=== PATIENT | male | born 1970 | race Caucasian/White ===

== ENCOUNTER → 2017-01-09 | Outpatient (CLI) | payer BC ==
[2017-01-09 11:27] LABS: Basophils % (A) 1 %; CH 30.1; CHCM 34.8; Eosinophils # (A) 0.1 k/uL (0-0.7); Eosinophils % (A) 3 %; HCT 38.4 % (39.0-53.0); HDW 2.71; HGB 13.4 gm/dL (13.0-17.5); Luc # (Auto) 0.07; Luc % (Auto) 2; Lymphocytes # (A) 1.4 k/uL (1.0-4.8); Lymphocytes % (A) 31 %; MCH 30.2 pg (25.0-35.0); MCHC 34.8 g/dL (31.0-37.0); MCV 86.9 fL (80.0-100.0); Mean Platelet Volume 7.4; Monocytes # (A) 0.2 k/uL (0-1.0); Monocytes % (A) 5 %; Neutrophils # (A) 2.7 k/uL (1.3-7.7); Neutrophils % (A) 59 %; RBC 4.42 m/uL (4.30-5.90); RDW 13.7 % (11.5-15.5); WBC 4.6 k/uL (3.8-10.6); WBC (Perox) 4.98
[2017-01-09 11:32] LABS: Appearance,Urine Clear (Clear); Bilirubin,Urine Negative (Negative); Glucose,Urine (UA) Negative (Negative); Ketones,Urine Negative (Negative); Leukocyte Esterase,Urine Negative (Negative); Nitrite,Urine Negative (Negative); Protein,Urine Trace (Negative); Specific Gravity,Urine 1.015 (1.001-1.035); UA Billing (MACRO vs. MICRO) CHEM; Urobilinogen,Urine <2.0 mg/dL (<2.0)
[2017-01-09 11:39] LABS: Anion Gap 8 mmol/L; Blood Urea Nitrogen 28 mg/dL (9-20); Calcium 10.1 mg/dL (8.4-10.2); Carbon Dioxide 27 mmol/L (22-30); Chloride 106 mmol/L (98-107); Glucose 96 mg/dL (74-99); Non-African American GFR(MDRD) >60 (>60 ml/min/1.73 sqM); Phosphorus 3.5 mg/dL (2.5-4.5); Potassium 4.6 mmol/L (3.5-5.1); Sodium 141 mmol/L (137-145); Uric Acid 8.1 mg/dL (3.5-8.5)
[2017-01-09 16:44] LABS: Iron Saturation 18.36 (15.00-50.00)
== END | disposition home or self-care (01) ==
LOC: LABWHC1 10:55
PROVIDERS: ATTEND Internal Medicine Nephrology
DX: N39.0 Urinary tract infection, site not specified (principal); M10.9 Gout, unspecified; D50.9 Iron deficiency anemia, unspecified; E55.9 Vitamin D deficiency, unspecified; N25.81 Secondary hyperparathyroidism of renal origin; N18.2 Chronic kidney disease, stage 2 (mild); D63.1 Anemia in chronic kidney disease
CPT/HCPCS: 36415; 80048; 81003; 82306; 82728; 83540; 83550; 83735; 83970; 84100; 84550; 85025

== ENCOUNTER → 2019-01-17 | Outpatient (CLI) | payer BC ==
[2019-01-18 00:10] LABS: Gliadin AB IgA, Deaminated NEGATIVE (NEGATIVE); Gliadin AB IgG, Deaminated NEGATIVE (NEGATIVE)
== END | disposition home or self-care (01) ==
LOC: LABWHC1 16:31
PROVIDERS: ATTEND Physician Assistant
DX: Z13.818 Encounter for screening for other digestive system disorders (principal); Z83.79 Family history of other diseases of the digestive system
CPT/HCPCS: 36415; 83516

== ENCOUNTER → 2019-11-26 | Outpatient (CLI) | payer BC ==
[2019-11-26 08:58] LABS: Basophils # (A) 0.1 k/uL (0-0.2); Basophils % (A) 1 %; Eosinophils # (A) 0.1 k/uL (0-0.7); Eosinophils % (A) 3 %; HCT 41.2 % (39.0-53.0); HGB 14.1 gm/dL (13.0-17.5); Lymphocytes # (A) 1.4 k/uL (1.0-4.8); Lymphocytes % (A) 31 %; MCH 30.8 pg (25.0-35.0); MCHC 34.4 g/dL (31.0-37.0); MCV 89.5 fL (80.0-100.0); Mean Platelet Volume 6.7; Monocytes # (A) 0.2 k/uL (0-1.0); Monocytes % (A) 5 %; Neutrophils # (A) 2.5 k/uL (1.3-7.7); Neutrophils % (A) 58 %; Platelet Count 204 k/uL (150-450); RDW 12.4 % (11.5-15.5); WBC 4.4 k/uL (3.8-10.6)
[2019-11-26 09:21] LABS: Appearance,Urine Clear (Clear); Bilirubin,Urine Negative (Negative); Blood,Urine Negative (Negative); Color,Urine Light Yellow; Glucose,Urine (UA) Negative (Negative); Ketones,Urine Negative (Negative); Leukocyte Esterase,Urine Negative (Negative); Nitrite,Urine Negative (Negative); PH, Urine 6.5 (5.0-8.0); Protein,Urine Negative (Negative); Specific Gravity,Urine 1.014 (1.001-1.035); Urobilinogen,Urine <2.0 mg/dL (<2.0)
[2019-11-26 10:05] LABS: Protein/Creatinine Ratio,Urine 0.113
[2019-11-26 18:00] LABS: % Iron Saturation 20.79 (15.00-50.00); African American GFR (CKD) 92.2 (60.0-200.0); Anion Gap 9.2 mmol/L (4.00-12.00); BUN/Creat Ratio 23.64 Ratio (12.00-20.00); Calcium 9.8 mg/dL (8.7-10.3); Carbon Dioxide 27.8 mmol/L (21.6-31.8); Non-African American GFR(CKD) 79.5 (60.0-200.0); Potassium 4.5 mmol/L (3.5-5.5); Uric Acid 8.5 mg/dL (3.7-8.7)
[2019-11-26 18:01] LABS: Albumin 4.5 g/dL (3.80-4.90); Phosphorus 3.3 mg/dL (2.4-5.1)
[2019-11-26 18:09] LABS: Ferritin 294.5 ng/mL (22.0-322.0)
== END | disposition home or self-care (01) ==
LOC: LABWHC1 07:43
PROVIDERS: ATTEND Internal Medicine Nephrology
DX: N18.2 Chronic kidney disease, stage 2 (mild) (principal)
CPT/HCPCS: 36415; 80048; 81003; 82040; 82306; 82570; 82728; 83540; 83550; 83735; 83970; 84100; 84156; 84550; 85025

== ENCOUNTER 2020-10-27 10:25 | Day surgery (SDC) | payer BC ==
[2020-10-22 15:35] VITALS: BMI 32.3
[~2020-10-27 10:25] MED LIST: LACTATED RINGERS 1,000 ML IV SCH
[2020-10-27 10:45] VITALS: TEMP 98
[2020-10-27] MEDS ORDERED: LACTATED RINGERS 1,000 ML IV ONE (10:53)
[2020-10-27] MEDS ORDERED: LIDOCAINE 1% INJ 10MG/ML (20 ML MDV) ONE (11:38)
[2020-10-27] MEDS ORDERED: PROPOFOL 10 MG/ML 20 ML VIAL IV ONE (11:38)
--- NOTE | 2020-10-27 11:54 | P.PCN ---
Date of Procedure: 10/27/20 Procedure(s) Performed: BRIEF HISTORY: Patient is a 50-year-old pleasant white male scheduled for an elective colonoscopy as a part of chronic diarrhea for the last 20 years duration. He has bowel movements anywhere from 6-12 a day which are loose to watery in consistency. PROCEDURE PERFORMED: Colonoscopy random biopsies. PREOPERATIVE DIAGNOSIS: Chronic diarrhea for 20 years duration. IV sedation per Anesthesia. PROCEDURE: After informed consent was obtained, the patient, was brought into the endoscopy unit. IV sedation was administered by Anesthesia under continuous monitoring. Digital rectal examination was normal. Initially the Olympus CF-160 flexible video colonoscope was then inserted in the rectum, gradually advanced into the cecum without any difficulty. Careful examination was performed as the scope was gradually being withdrawn. Ileocecal valve and the appendiceal orifice were visualized and appeared normal. Prep was excellent. Terminal ileum was intubated and appeared normal. Mucosa of the cecum, ascending colon, transverse colon, descending colon, sigmoid colon, and rectum appeared normal. Random biopsies were done from the terminal ileum, ascending and descending colon to rule out microscopic/collagenous colitis. Retroflexion was performed in the rectum and no lesions were seen. The patient tolerated the procedure well. IMPRESSION: Normal-appearing colon from rectum to cecum with no evidence of colitis or colorectal neoplasia. RECOMMENDATIONS: Findings of this examination were discussed with the patient as well as his family. He was advised to follow with the biopsy results. In the meantime he'll continue with Imodium to 2 tablets 4 times daily..
[2020-10-27 12:03] VITALS: RESP 16
[2020-10-27 12:24] VITALS: BP 114/73; PULSE 60
== END 2020-10-27 12:43 | disposition home or self-care (01) ==
LOC: ORWHC2ENDO 10:25
PROVIDERS: ATTEND Internal Medicine Gastroenterology
DX: K52.9 Noninfective gastroenteritis and colitis, unspecified (principal); I10 Essential (primary) hypertension; Z79.899 Other long term (current) drug therapy
CPT/HCPCS: 88305; 45380; J2001; J2704

== ENCOUNTER 2020-11-18 12:34 | Inpatient (IN) | payer BC ==
[2020-11-18] MEDS ORDERED: ALBUTEROL HFA INHALER INHALATION PRN (13:07)
[2020-11-18] MEDS ORDERED: ACETAMINOPHEN TAB 325 MG TAB PO PRN (13:07)
[2020-11-18] MEDS ORDERED: DEXAMETHASONE SOD PHOSPHATE 10 MG/ML 1 ML VIAL IV STA (13:08)
[2020-11-18] MEDS ORDERED: SODIUM CHLORIDE 0.9% 1,000 ML IV ONE (13:09)
--- NOTE | 2020-11-18 13:30 | ED ---
General Adult HPI - General Chief complaint: Shortness of Breath Stated complaint: covid+/isabella Time Seen by Provider: 11/18/20 12:47 Source: patient, RN notes reviewed, old records reviewed Mode of arrival: ambulatory Limitations: no limitations - History of Present Illness Initial comments: I evaluated the patient when he was placed in a room.Patient is a 50-year-old male with past medical history remarkable for IgA nephropathy, hypertension who presents emergency Department complaining of worsening shortness of breath. Patient was diagnosed with COVID-19 yesterday, received the monoclonal antibody treatment, was discharged home. Patient states he returns today to the hospital over concern for worsening symptoms. He states that shortness of breath is worsened. He also feels like his fevers have worsened. He is complaining of a productive cough of whitish sputum. Denies any abdominal pain, nausea, vomiting. Denies any headaches but does endorse generalized fatigue. Denies any leg swelling. He did not received the Covid 19 vaccination. He presents today over concerns for worsening Infection. - Related Data Home Medications Medication Instructions Recorded Confirmed Olmesartan/Hydrochlorothiazide 1 tab PO HS 10/22/20 11/18/20 [Benicar Hct 40-25 mg Tablet] lisinopriL 20 mg PO HS 10/22/20 11/18/20 Acetaminophen Tab [Tylenol Tab] 1,000 mg PO Q6HR PRN 11/18/20 11/18/20 Allergies Allergy/AdvReac Type Severity Reaction Status Date / Time No Known Allergies Allergy Verified 11/18/20 13:38 Review of Systems ROS Statement: Those systems with pertinent positive or pertinent negative responses have been documented in the HPI. Review of Systems: CONST: Endorses fever, generalized fatigue EYES: Denies blurry vision ENT: Denies nasal congestion C/V: Denies Chest pain RESP: Endorses shortness of breath GI: Denies abdominal pain : Denies dysuria SKIN: Denies rash. MSK: Denies joint pain. NEURO: Denies headache ROS Other: All systems not noted in ROS Statement are negative. 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 History of Any Multi-Drug Resistant Organisms: None Reported Past Surgical History: Orthopedic Surgery Additional Past Surgical History / Comment(s): Kidney biopsies. Left knee surgery. Past Anesthesia/Blood Transfusion Reactions: No Reported Reaction, Motion Sickness Past Psychological History: No Psychological Hx Reported Smoking Status: Never smoker Past Alcohol Use History: None Reported Past Drug Use History: None Reported - Past Family History Mother Family Medical History: No Reported History General Exam - General Exam Comments Initial Comments: General: Appears in mild to moderate distress secondary to shortness of breath. On room air, patient is 90-91% at rest, and 88-90% on exertion. He is tachypneic HEAD: [Normal with no signs of head trauma.] EYES: [PERRLA, EOMI, conjunctiva normal, no discharge.] Pupils are 3 mm and equal bilaterally. ENT: [Hearing grossly intact, normal oropharynx.] RESPIRATORY: Patient has coarse breath sounds bilaterally. Patient is tachypneic C/V: [Regular rate and rhythm. S1 and S2 auscultated, no edema, peripheral pulses 2+ and intact throughout] ABD: [Abd is soft, nontender, nondistended] EXT: [Normal range of motion, no obvious deformity] SKIN: [No rashes or lesions observed on exposed skin.] NEURO: Alert and oriented 4. No focal deficits. Limitations: no limitations Course Vital Signs 11/18/20 11/18/20 11/18/20 12:38 14:10 15:30 Temperature 99.6 F Pulse Rate 97 93 Respiratory 22 20 Rate Blood Pressure 93/55 97/56 O2 Sat by Pulse 90 L 93 L 92 L Oximetry 11/18/20 11/18/20 15:41 17:35 Temperature Pulse Rate 90 Respiratory 20 Rate Blood Pressure 103/63 O2 Sat by Pulse 95 94 L Oximetry Medical Decision Making - Medical Decision Making Based on the patient's presentation and physical exam, I'm concerned for worsening COVID-19 infection. He now appears to be hypoxic, particularly on exertion. Therefore he will require admission to the hospital. We will obtain COVID-19 laboratory studies based on her order set, start the patient on nasal cannula oxygen to maintain saturations above 92%, and symptomatically treat him with Tylenol, albuterol, 10 mg of IV Decadron. Patient does appear slightly dehydrated and therefore he will also receive a 1 L fluid bolus. Isolation precautions were placed. Patient was in agreement this plan. He'll be connected to continuous cardiac monitoring with continuous pulse oximetry while he remains in the emergency department. EKG showed no signs of acute ischemia. Patient's chest x-ray revealed bilateral pulmonary infiltrates concerning for COVID-19 infection. Laboratory studies are remarkable for a normocytic anemia with a hemoglobin of 12.3. Patient is a thrombocyte hood of 127. D-dimer is elevated to 0.75. Patient is hyponatremic and hypochloremic of 130 and 97 respectively. Patient has an AK I the setting of his chronic renal disease with a creatinine of 2.42. Troponin is negative. CRP is elevated to 21, LDH is elevated to 1100. On reevaluation, patient is resting comfortably on 4 L nasal cannula saturating in the low 90%'s. I discussed with him the results of his imaging and laboratory studies. Due to the elevated d-dimer, I did recommend that we obtain imaging to a pulmonary embolism. Patient will not tolerate a CT angios secondary to renal function therefore perfusion exam was ordered. This was negative for acute PE. I cons ult to Dr. Colon for and does appear treatment. I consult to Dr. Landers for the patient's acute COVID-19 infection. I spoke with the admitting physician, Dr. Wan's [employer] who was in agreement with this plan. He also spoke with the consulting teams. While the patient remained in the emergency department, they've decided that we will place the patient on BiPAP support. Patient will be started on anticoagulation, however they will determine which type secondary to his renal function. Patient was therefore admitted in serious condition to telemetry bed. - Lab Data Result diagrams: 11/18/20 13:26 11/18/20 13:26 Lab Results 11/18/20 11/18/20 11/18/20 Range/Units 13:26 13:26 13:26 WBC 4.2 (3.8-10.6) k/uL RBC 3.99 L (4.30-5.90) m/uL Hgb 12.3 L (13.0-17.5) gm/dL Hct 34.7 L (39.0-53.0) % MCV 86.9 (80.0-100.0) fL MCH 30.7 (25.0-35.0) pg MCHC 35.4 (31.0-37.0) g/dL RDW 12.0 (11.5-15.5) % Plt Count 127 L (150-450) k/uL MPV 7.8 Neutrophils % 86 % Lymphocytes % 9 % Monocytes % 3 % Eosinophils % 0 % Basophils % 0 % Neutrophils # 3.6 (1.3-7.7) k/uL Lymphocytes # 0.4 L (1.0-4.8) k/uL Monocytes # 0.1 (0-1.0) k/uL Eosinophils # 0.0 (0-0.7) k/uL Basophils # 0.0 (0-0.2) k/uL PT 10.1 (9.0-12.0) sec INR 0.9 (<1.2) APTT 28.5 (22.0-30.0) sec D-Dimer 0.75 H (<0.60) mg/L FEU Sodium 130 L (137-145) mmol/L Potassium 4.6 (3.5-5.1) mmol/L Chloride 97 L (98-107) mmol/L Carbon Dioxide 24 (22-30) mmol/L Anion Gap 9 mmol/L BUN 41 H (9-20) mg/dL Creatinine 2.42 H (0.66-1.25) mg/dL Est GFR (CKD-EPI)AfAm 35 (>60 ml/min/1.73 sqM) Est GFR (CKD-EPI)NonAf 31 (>60 ml/min/1.73 sqM) Glucose 117 H (74-99) mg/dL Calcium 8.8 (8.4-10.2) mg/dL Magnesium 2.0 (1.6-2.3) mg/dL Total Bilirubin 0.6 (0.2-1.3) mg/dL AST 112 H (17-59) U/L ALT 112 H (4-49) U/L Alkaline Phosphatase 40 (38-126) U/L Lactate Dehydrogenase 1111 H (313-618) U/L Troponin I (0.000-0.034) ng/mL C-Reactive Protein 21.9 H (<1.0) mg/dL Total Protein 6.4 (6.3-8.2) g/dL Albumin 3.5 (3.5-5.0) g/dL Coronavirus (PCR) (Not Detectd) 11/18/20 11/18/20 Range/Units 13:26 13:37 WBC (3.8-10.6) k/uL RBC (4.30-5.90) m/uL Hgb (13.0-17.5) gm/dL Hct (39.0-53.0) % MCV (80.0-100.0) fL MCH (25.0-35.0) pg MCHC (31.0-37.0) g/dL RDW (11.5-15.5) % Plt Count (150-450) k/uL MPV Neutrophils % % Lymphocytes % % Monocytes % % Eosinophils % % Basophils % % Neutrophils # (1.3-7.7) k/uL Lymphocytes # (1.0-4.8) k/uL Monocytes # (0-1.0) k/uL Eosinophils # (0-0.7) k/uL Basophils # (0-0.2) k/uL PT (9.0-12.0) sec INR (<1.2) APTT (22.0-30.0) sec D-Dimer (<0.60) mg/L FEU Sodium (137-145) mmol/L Potassium (3.5-5.1) mmol/L Chloride (98-107) mmol/L Carbon Dioxide (22-30) mmol/L Anion Gap mmol/L BUN (9-20) mg/dL Creatinine (0.66-1.25) mg/dL Est GFR (CKD-EPI)AfAm (>60 ml/min/1.73 sqM) Est GFR (CKD-EPI)NonAf (>60 ml/min/1.73 sqM) Glucose (74-99) mg/dL Calcium (8.4-10.2) mg/dL Magnesium (1.6-2.3) mg/dL Total Bilirubin (0.2-1.3) mg/dL AST (17-59) U/L ALT (4-49) U/L Alkaline Phosphatase (38-126) U/L Lactate Dehydrogenase (313-618) U/L Troponin I <0.012 (0.000-0.034) ng/mL C-Reactive Protein (<1.0) mg/dL Total Protein (6.3-8.2) g/dL Albumin (3.5-5.0) g/dL Coronavirus (PCR) Detected A (Not Detectd) - EKG Data -: EKG Interpreted by Me EKG Comments: 12-lead Electrocardiogram Interpretation Note EKG was reviewed and interpreted by myself. 12-lead ECG performed at 1332 is interpreted by me as revealing normal sinus rhythm at a rate of 88 beats per minute. [place] is normal. MS interval is 156 ms, QRS duration is 80 ms, QTc is 404 ms.. There is an isolated T-wave inversion in lead III. Otherwise no acute ST segment changes or T wave abnormalities.. R wave progression across the precordium was satisfactory. By my interpretation this EKG is non-diagnostic for acute ischemia. Critical Care Time Critical Care Time: Yes Total Critical Care Time: 30 Critical Care Time: Upon my evaluation, this patient had a high probability of imminent or life- threatening deterioration due to acute hypoxic respiratory failure secondary to COVID-19 pneumonia, which required my direct attention, intervention, and personal management. I have personally provided 30 minutes of critical care time exclusive of time spent on separately billable procedures. Time includes review of laboratory data, radiology results, discussion with consultants, and monitoring for potential decompensation. Interventions were performed as documented in my note. Disposition Clinical Impression: Pneumonia due to COVID-19 virus, Acute respiratory failure with hypoxia, ROCHELLE (acute kidney injury), Elevated d-dimer, Hyponatremia, Thrombocytopenia Disposition: ADMITTED IP TO THIS HOSP Condition: Serious
--- NOTE | 2020-11-18 13:35 | XR ---
EXAMINATION TYPE: XR chest 1V portable DATE OF EXAM: 11/18/2020 COMPARISON: NONE HISTORY: Cough and shortness of breath. COVID . TECHNIQUE: Single AP portable frontal upright view of the chest is obtained. FINDINGS: There are bilateral multifocal opacities greatest in the lower lungs. The cardiac silhoue tte size is mildly enlarged. The osseous structures are intact. IMPRESSION: Mild cardiomegaly with bilateral multifocal opacities consistent with known covid-19 infe ction.
[2020-11-18 13:41] LABS: Basophils % (A) 0 %; Eosinophils % (A) 0 %; HCT 34.7 % (39.0-53.0); HGB 12.3 gm/dL (13.0-17.5); Lymphocytes # (A) 0.4 k/uL (1.0-4.8); Lymphocytes % (A) 9 %; MCH 30.7 pg (25.0-35.0); MCHC 35.4 g/dL (31.0-37.0); MCV 86.9 fL (80.0-100.0); Mean Platelet Volume 7.8; Monocytes # (A) 0.1 k/uL (0-1.0); Monocytes % (A) 3 %; Neutrophils # (A) 3.6 k/uL (1.3-7.7); Neutrophils % (A) 86 %; Platelet Count 127 k/uL (150-450); RBC 3.99 m/uL (4.30-5.90); WBC 4.2 k/uL (3.8-10.6)
[2020-11-18 13:51] LABS: Albumin 3.5 g/dL (3.5-5.0); Calcium 8.8 mg/dL (8.4-10.2); Potassium 4.6 mmol/L (3.5-5.1); Total Bilirubin 0.6 mg/dL (0.2-1.3); Total Protein 6.4 g/dL (6.3-8.2)
[2020-11-18 13:59] LABS: INR 0.9 (<1.2); Partial Thromboplastin Time 28.5 sec (22.0-30.0); Prothrombin Time 10.1 sec (9.0-12.0)
[2020-11-18 14:18] LABS: C Reactive Protein 21.9 mg/dL (<1.0)
[2020-11-18] MEDS ORDERED: SODIUM CHLORIDE 0.9% 1,000 ML IV STA (14:30)
[2020-11-18] MEDS ORDERED: NALOXONE 0.4 MG/ML 1 ML VIAL IV PRN (14:31)
[2020-11-18] MEDS ORDERED: REMDESIVIR 200 MG in SODIUM CHLORIDE 0.9% 250 ML IVPB ONE ×2 (16:00→20:00)
--- NOTE | 2020-11-18 16:54 | NM ---
EXAMINATION TYPE: NM pul perfusion DATE OF EXAM: 11/18/2020 COMPARISON: Chest x-ray earlier today. HISTORY: Elevated d-dimer. COVID positive. Following administration of 5.4 mCi Tc 99m MAA. Images obtained post injection. FINDINGS: Satisfactory radiotracer uptake in both lungs was prepped some small focal peripheral areas showing d iminished uptake but these are less prominent than corresponding x-ray abnormalities. IMPRESSION: Pulmonary embolism absent. (Normal or very low probability)
[2020-11-18] MEDS: ZINC SULFATE 220 MG CAP PO SCH (18:19)
[2020-11-18] MEDS: ENOXAPARIN 40 MG/0.4 ML SYRINGE SQ SCH (18:30)
--- NOTE | 2020-11-18 21:05 | P.HPIM ---
History of Present Illness H&P Date: 11/18/20 Chief Complaint: Covid 19 infection with progressive shortness of breath 50-year-old male with significant past medical history of IgA neuropathy, hypertension, acute Covid 19 infection with recent monoclonal antibody infusion one day prior to presenting to the emergency department. Patient presented to the emergency department worsening of symptoms with difficulty in breathing, fever, chills, cough and generalized malaise. He states symptoms have been ongoing for 7 days. Patient had extensive diagnostic workup in the emergency department revealing a positive Covid 19 infection; chest x-ray revealed mild cardiomegaly with bilateral multifocal opacities consistent with known Covid infection. Patient noted to have elevated d-dimer, patient had a ventilation and perfusion scan with low probability of pulmonary embolism. Review of electrolytes sodium 130, potassium 4.6, chloride 97 renal function BUN 41 creatinine 2.4, revealing acute kidney injury on chronic. Patient had elevated glucose of 117, mildly elevated liver enzymes of AST of 112 and ALT of 112, LDH was 1111, C-reactive protein noted to be 21.9, first troponin negative, BNP negative at 216. Consultation with pulmonary critical care Dr. Landers reviewed patient's clinical condition of need for oxygen and chest x-ray, recommended BiPAP of 10/5. Consultation with infectious disease regarding Remdesivir, recommendation with continued infusion. Patient noted to be in guarded prognosis due to severe Covid infection with acute kidney injury with long- standing history of IgA neuropathy, htn and obesity. Review of Systems Constitutional: Reports chills, Reports fatigue, Reports fever, Reports lethargy, Reports malaise, Reports night sweats, Reports poor appetite, Reports weakness, Reports weight loss Eyes: bilateral blurred vision Ears, nose, mouth and throat: Reports headache, Reports hoarseness, Reports nasal congestion Cardiovascular: Reports decreased exercise tolerance, Reports dyspnea on exertion, Reports lightheadedness, Reports shortness of breath Respiratory: Reports cough, Reports dyspnea Gastrointestinal: Reports abdominal pain, Reports nausea Genitourinary: Reports as per HPI Musculoskeletal: Reports muscle cramps, Reports muscle weakness Neurological: Reports headaches, Reports weakness Psychiatric: Reports anxiety Endocrine: Reports fatigue, Reports flushing Hematologic/Lymphatic: Reports as per HPI Allergic/Immunologic: Reports as per HPI Past Medical History Additional Past Medical History / Comment(s): Chronic diarrhea."Autoimmune IGA nephropathy, 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 History of Any Multi-Drug Resistant Organisms: None Reported Past Surgical History: Orthopedic Surgery Additional Past Surgical History / Comment(s): Kidney biopsies. Left knee surgery. Past Anesthesia/Blood Transfusion Reactions: No Reported Reaction, Motion Sickness Past Psychological History: No Psychological Hx Reported Smoking Status: Never smoker Past Alcohol Use History: None Reported Past Drug Use History: None Reported - Past Family History Mother Family Medical History: No Reported History Medications and Allergies Home Medications and Allergies Comment(s): Medications and ALLERGIES reviewed Home Medications Medication Instructions Recorded Confirmed Type Olmesartan/Hydrochlorothiazide 1 tab PO HS 10/22/20 11/18/20 History [Benicar Hct 40-25 mg Tablet] lisinopriL 20 mg PO HS 10/22/20 11/18/20 History Acetaminophen Tab [Tylenol Tab] 1,000 mg PO Q6HR PRN 11/18/20 11/18/20 History Allergies Allergy/AdvReac Type Severity Reaction Status Date / Time No Known Allergies Allergy Verified 11/18/20 13:38 Physical Exam Vitals: Vital Signs Temp Pulse Resp BP Pulse Ox 11/18/20 17:35 90 20 103/63 94 L 11/18/20 15:41 95 11/18/20 15:30 92 L 11/18/20 14:10 93 20 97/56 93 L 11/18/20 12:38 99.6 F 97 22 93/55 90 L Intake and Output 11/18/20 11/18/20 11/18/20 06:59 14:59 22:59 Other: Weight 110.677 kg - Constitutional General appearance: cooperative, mild distress - EENT Eyes: EOMI, PERRLA, normal appearance ENT: normal oropharynx Ears: bilateral: normal - Neck Neck: normal ROM Carotids: bilateral: upstroke normal Thyroid: bilateral: normal size - Respiratory Respiratory: bilateral: rhonchi (Course through anterior and posterior lung morrison) - Cardiovascular Normal sinus rhythm Heart rate: 84 Rhythm: regular Heart sounds: normal: S1, S2 dorsalis pedis Peripheral Pulses: bilateral: Normal radial pulse Peripheral Pulses: bilateral: Normal - Gastrointestinal General gastrointestinal: normal bowel sounds, soft - Integumentary Integumentary: decreased turgor, pale - Neurologic Neurologic: CNII-XII intact - Musculoskeletal Musculoskeletal: generalized weakness - Psychiatric Psychiatric: A&O x's 3, appropriate affect, intact judgment & insight Results CBC & Chem 7: 11/18/20 13:26 11/18/20 13:26 Labs: Abnormal Lab Results - Last 24 Hours (Table) 11/18/20 11/18/20 11/18/20 Range/Units 13:26 13:26 13:26 RBC 3.99 L (4.30-5.90) m/uL Hgb 12.3 L (13.0-17.5) gm/dL Hct 34.7 L (39.0-53.0) % Plt Count 127 L (150-450) k/uL Lymphocytes # 0.4 L (1.0-4.8) k/uL D-Dimer 0.75 H (<0.60) mg/L FEU Sodium 130 L (137-145) mmol/L Chloride 97 L (98-107) mmol/L BUN 41 H (9-20) mg/dL Creatinine 2.42 H (0.66-1.25) mg/dL Glucose 117 H (74-99) mg/dL AST 112 H (17-59) U/L ALT 112 H (4-49) U/L Lactate Dehydrogenase 1111 H (313-618) U/L C-Reactive Protein 21.9 H (<1.0) mg/dL Coronavirus (PCR) (Not Detectd) 11/18/20 Range/Units 13:37 RBC (4.30-5.90) m/uL Hgb (13.0-17.5) gm/dL Hct (39.0-53.0) % Plt Count (150-450) k/uL Lymphocytes # (1.0-4.8) k/uL D-Dimer (<0.60) mg/L FEU Sodium (137-145) mmol/L Chloride (98-107) mmol/L BUN (9-20) mg/dL Creatinine (0.66-1.25) mg/dL Glucose (74-99) mg/dL AST (17-59) U/L ALT (4-49) U/L Lactate Dehydrogenase (313-618) U/L C-Reactive Protein (<1.0) mg/dL Coronavirus (PCR) Detected A (Not Detectd) Comments: Ventilation and perfusion scan reviewed Chest x-ray: report reviewed Thrombosis Risk Factor Assmnt - Choose All That Apply Each Factor Represents 1 point: Age 41-60 years, Obesity (BMI >25) Other Risk Factors: No Other congenital or acquired thrombophilia - If yes, enter type in comment: No Thrombosis Risk Factor Assessment Total Risk Factor Score: 2 Thrombosis Risk Factor Assessment Level: Low Risk Assessment and Plan Assessment: Acute Covid 19 infection consistent with Covid pneumonia Acute respiratory failure with hypoxia, patient required 6 L of oxygen to keep oxygen saturations greater than 88%, patient placed on BiPAP 10/5 with FiO2 of 50%. Acute kidney injury Mild hyponatremia Mildly elevated d-dimer Elevated glucose of 117 Elevated AST and ALT of 112 Elevated LDH of 1111 C-reactive protein elevated 21.9 Autoimmune IgA neuropathy Hypertension Obesity with a BMI of 31.3 Full code Plan: Acute Covid 19 infection consistent with Covid pneumonia, consultation with pulmonary critical care and infectious disease. We'll initiate Remdesivir IV infusion per protocol and infectious disease recommendation. Continue Lovenox 40 mg subcu daily, Decadron 6 mg IV twice a day, vitamin C 1 g by mouth daily, zinc 220 mg by mouth daily Acute respiratory failure with hypoxia, patient required 6 L of oxygen to keep oxygen saturations greater than 88%, patient placed on BiPAP 10/5 with FiO2 of 50%. Acute kidney injury, we'll avoid nephrotoxic drugs as possible, and consultation with nephrology for recommendations and treatment plan Cardiomegaly noted on chest x-ray will obtain echocardiogram Continue to monitor vital signs and diagnostic testing Further recommendations to come based on patient's clinical condition Time with Patient: Greater than 30
[2020-11-18] MEDS: INSULIN ASPART (NovoLOG) 100 UNIT/ML VIAL SQ SCH (22:37)
[2020-11-18] MEDS: DEXAMETHASONE SOD PHOSPHATE 10 MG/ML 1 ML VIAL IV SCH (22:38)
[2020-11-18 22:42] LABS: Glucose,Whole Blood 161 mg/dL (75-99)
[2020-11-19 06:44] LABS: INR 0.9 (<1.2); Partial Thromboplastin Time 29.8 sec (22.0-30.0); Prothrombin Time 9.6 sec (9.0-12.0)
[2020-11-19 07:26] LABS: Glucose,Whole Blood 159 mg/dL (75-99)
[2020-11-19] MEDS: ENOXAPARIN 40 MG/0.4 ML SYRINGE SQ SCH (07:57)
[2020-11-19] MEDS: INSULIN ASPART (NovoLOG) 100 UNIT/ML VIAL SQ SCH ×4 (07:57→22:10)
[2020-11-19] MEDS: ASCORBIC ACID 500 MG TAB PO SCH (07:57)
[2020-11-19] MEDS: DEXAMETHASONE SOD PHOSPHATE 10 MG/ML 1 ML VIAL IV SCH ×2 (07:57→22:10)
[2020-11-19] MEDS: ZINC SULFATE 220 MG CAP PO SCH (07:58)
[2020-11-19] MEDS: ALBUTEROL HFA INHALER INHALATION SCH ×4 (08:06→21:24)
--- NOTE | 2020-11-19 08:38 | P.CONS ---
History of Present Illness - Reason for Consult Consult date: 11/18/20 covid 19 pneumonia Requesting physician: Gato Daniel - Chief Complaint shortness of breath and cough x 5 days - History of Present Illness History of present illness : Patient is 50-year-old male with a past medical he significant for IgA nephropathy hypertension presented to hospital with increasing shortness of breath and this patient symptom has been going on for about 6 days patient was diagnosed with a COVID-19 yesterday the patient received monoclonal antibody treatment and was subsequent discharged home however the patient is coming back to the hospital today complaining of increasing shortness of breath on minimal exertion patient also having a cough which is moderate intensity with whitish sputum, the patient denies having pleuritic chest pain patient also complaining of fever patient denies having abdominal pain no nausea no vomiting did have decreased oral intake and generalized fatigue with the symptom the patient was evaluated by the ER physician on arrival to the ER patient did have low-grade fever of 99.7 degree form height patient was hypoxic with O2 sats of 90% on room air patient did have a normal white count with lymphopenia D-dimer was 0.75 creatinine was 2.42 liver is enlarged mildly elevated alexandre PCR was positive patient did have a chest x- ray mild, cardiomegaly with bilateral multifocal opacities consistent with the known COVID-19 patient did have pulmonary perfusion imaging very low probability for PE patient did received a dose of remdesivir started on dexamethasone infectious he was consulted for further management Review of system: CONSTITUTIONAL: Positive for weakness along with the fever. EYES: No complaint. ENT: No complaint. RESPIRATORY: As per history of present illness. CARDIOVASCULAR: No complaint. GENITOURINARY: No complaint. GASTROINTESTINAL: As per history of present illness. MUSCULOSKELETAL: No complaint. INTEGUMENTARY: No complaint. PSYCHOLOGIC: No complaint. ENDOCRINE: No complaint. NEUROLOGIC: No complaint. Past medical history : Reviewed, documented below Past surgical history : Reviewed, documented below Social history: Reviewed, documented below Medications: Reviewed, as documented below EXAMINATION: Vital sigans= Reviewed and documented below GENERAL DESCRIPTION: Middle-aged male lying in bed, no distress. No tachypnea or accessory muscle of respiration use. HEENT: Shows Pallor , no scleral icterus. Oral mucous membrane is dry. NECK: Trachea central, no thyromegaly. LUNGS: Unlabored breathing. Bilateral coarse rhonchi HEART: S1, S2, regular rate and rhythm. ABDOMEN: Soft, no tenderness , guarding or rigidity EXTREMITIES: No edema of feet. SKIN: No rash, no masses palpable. NEUROLOGICAL: The patient is awake, alert, oriented x3, mood and affect normal. LABS AND RADIOLOGY: Reviewed results see below Assessment : 1-Patient presented to hospital with acute respiratory failure in this patient who did have significant hypoxemia with evidence of bilateral interstitial infiltrate secondary to COVID-19 pneumonia in this patient who did have underlying IgA nephropathy and high risk of progression to full-blown respiratory failure clinically no evidence of any secondary bacterial pneumonia 2-renal insufficiency but creatinine clearance is more than 30 mm/min Plan: 1-patient to continue with remdesivir to finish his 5-day course of therapy 2-dexamethasone Lovenox zinc and ascorbic acid 3-droplet isolation and respiratory support We will follow on clinical condition and cultures to further adjust medication if needed Plan of care was discussed with admitting physician on the phone Thank you for this consultation we will follow the patient along with you Past Medical History Additional Past Medical History / Comment(s): Chronic diarrhea."Autoimmune IGA nephropathy, 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 History of Any Multi-Drug Resistant Organisms: None Reported Past Surgical History: Orthopedic Surgery Additional Past Surgical History / Comment(s): Kidney biopsies. Left knee surgery. Past Anesthesia/Blood Transfusion Reactions: No Reported Reaction, Motion Sickness Past Psychological History: No Psychological Hx Reported Smoking Status: Never smoker Past Alcohol Use History: None Reported Past Drug Use History: None Reported - Past Family History Mother Family Medical History: No Reported History Medications and Allergies Home Medications Medication Instructions Recorded Confirmed Type Olmesartan/Hydrochlorothiazide 1 tab PO HS 10/22/20 11/18/20 History [Benicar Hct 40-25 mg Tablet] lisinopriL 20 mg PO HS 10/22/20 11/18/20 History Acetaminophen Tab [Tylenol Tab] 1,000 mg PO Q6HR PRN 11/18/20 11/18/20 History Allergies Allergy/AdvReac Type Severity Reaction Status Date / Time No Known Allergies Allergy Verified 11/18/20 13:38 Physical Exam Vitals: Vital Signs Temp Pulse Resp BP Pulse Ox 11/18/20 15:41 95 11/18/20 15:30 92 L 11/18/20 14:10 93 20 97/56 93 L 11/18/20 12:38 99.6 F 97 22 93/55 90 L Intake and Output 11/18/20 11/18/20 11/18/20 06:59 14:59 22:59 Other: Weight 110.677 kg Results CBC & Chem 7: 11/18/20 13:26 11/18/20 13:26 Labs: Abnormal Lab Results - Last 24 Hours (Table) 11/18/20 11/18/20 11/18/20 Range/Units 13:26 13:26 13:26 RBC 3.99 L (4.30-5.90) m/uL Hgb 12.3 L (13.0-17.5) gm/dL Hct 34.7 L (39.0-53.0) % Plt Count 127 L (150-450) k/uL Lymphocytes # 0.4 L (1.0-4.8) k/uL D-Dimer 0.75 H (<0.60) mg/L FEU Sodium 130 L (137-145) mmol/L Chloride 97 L (98-107) mmol/L BUN 41 H (9-20) mg/dL Creatinine 2.42 H (0.66-1.25) mg/dL Glucose 117 H (74-99) mg/dL AST 112 H (17-59) U/L ALT 112 H (4-49) U/L Lactate Dehydrogenase 1111 H (313-618) U/L C-Reactive Protein 21.9 H (<1.0) mg/dL Coronavirus (PCR) (Not Detectd) 11/18/20 Range/Units 13:37 RBC (4.30-5.90) m/uL Hgb (13.0-17.5) gm/dL Hct (39.0-53.0) % Plt Count (150-450) k/uL Lymphocytes # (1.0-4.8) k/uL D-Dimer (<0.60) mg/L FEU Sodium (137-145) mmol/L Chloride (98-107) mmol/L BUN (9-20) mg/dL Creatinine (0.66-1.25) mg/dL Glucose (74-99) mg/dL AST (17-59) U/L ALT (4-49) U/L Lactate Dehydrogenase (313-618) U/L C-Reactive Protein (<1.0) mg/dL Coronavirus (PCR) Detected A (Not Detectd)
[2020-11-19 09:11] LABS: Basophils # (A) 0 X 10*3/uL (0.00-0.10); Basophils % (A) 0 %; Eosinophils # (A) 0 X 10*3/uL (0.04-0.35); Eosinophils % (A) 0 %; HCT 35.7 % (39.6-50.0); Lymphocytes % (A) 16.3 %; MCH 29.5 pg (27.0-32.0); MCHC 33.6 g/dL (32.0-37.0); MCV 87.7 fL (80.0-97.0); Mean Platelet Volume 10.3 fL (9.5-12.2); Monocytes # (A) 0.11 X 10*3/uL (0.20-1.00); Monocytes % (A) 4.5 %; Neutrophils # (A) 1.94 X 10*3/uL (1.80-7.70); Neutrophils % (A) 78.8 %; Platelet Count 160 X 10*3/uL (140-440); RBC 4.07 X 10*6/uL (4.40-5.60); RDW 12.3 % (11.5-14.5); WBC 2.46 X 10*3/uL (4.50-10.00)
[2020-11-19 09:25] LABS: ALT 106 U/L (4-49); AST 96 U/L (17-59); African American GFR (CKD) >90 (>60 ml/min/1.73 sqM); Albumin 3.3 g/dL (3.5-5.0); Alkaline Phosphatase 46 U/L (38-126); Anion Gap 9 mmol/L; Blood Urea Nitrogen 31 mg/dL (9-20); Calcium 8.9 mg/dL (8.4-10.2); Carbon Dioxide 22 mmol/L (22-30); Chloride 106 mmol/L (98-107); Globulin 3.2 g/dL; Glucose 165 mg/dL (74-99); LDH 1139 U/L (313-618); Magnesium 2.3 mg/dL (1.6-2.3); Non-African American GFR(CKD) 86 (>60 ml/min/1.73 sqM); Potassium 4.9 mmol/L (3.5-5.1); Sodium 137 mmol/L (137-145); Total Bilirubin 0.5 mg/dL (0.2-1.3); Total Protein 6.5 g/dL (6.3-8.2)
[2020-11-19 09:50] LABS: C Reactive Protein 19.8 mg/dL (<1.0)
--- NOTE | 2020-11-19 09:57 | XR ---
EXAMINATION TYPE: XR chest 1V DATE OF EXAM: 11/19/2020 COMPARISON: 11/18/2020 HISTORY: Shortness of breath TECHNIQUE: Single frontal view of the chest is obtained. FINDINGS: Multifocal infiltrates are seen bilaterally without significant change. The cardiac silhouette size is within normal limits. The osseous structures are intact. IMPRESSION: 1. Multifocal infiltrates are seen bilaterally without significant change.
--- NOTE | 2020-11-19 10:00 | ECHOF ---
Referral Reason:Cardiomegaly MEASUREMENTS -------- HEIGHT: 188.0 cm WEIGHT: 110.7 kg BP: 115/70 RVIDd: 3.3 cm (< 3.3) IVSd: 1.2 cm (0.6 - 1.1) LVIDd: 4.1 cm (3.9 - 5.3) LVPWd: 1.2 cm (0.6 - 1.1) IVSs: 1.8 cm LVIDs: 2.7 cm LVPWs: 1.7 cm LA Diam: 3.8 cm (2.7 - 3.8) LAESV Index (A-L): 25.97 ml/m Ao Diam: 2.9 cm (2.0 - 3.7) AV Cusp: 2.4 cm (1.5 - 2.6) MV EXCURSION: 18.547 mm (> 18.000) MV EF SLOPE: 127 mm/s (70 - 150) EPSS: 0.4 cm MV E Cody: 1.34 m/s MV DecT: 183 ms MV A Cody: 0.70 m/s MV E/A Ratio: 1.93 RAP: 5.00 mmHg RVSP: 21.42 mmHg FINDINGS -------- Sinus rhythm. This was a technically good study. The left ventricular size is normal. There is borderline concentric left ventricular hypertrophy. Overall left ventricular systolic function is normal with, an EF between 60 - 65 %. The right ventricle is mildly enlarged. Normal LA size by volume 22+/-6 ml/m2. The right atrium is normal in size. Interatrial and interventricular septum intact. The aortic valve is trileaflet, and appears structurally normal. No aortic stenosis or regurgitation. The mitral valve is normal. The tricuspid valve appears structurally normal. Unable to estimate RVSP due to inadequate TR jet s pectral doppler profile. Trace/mild (physiologic) pulmonic regurgitation. The aortic root size is normal. Normal inferior vena cava with normal inspiratory collapse consistent with estimated right atrial pre ssure of 5 mmHg. There is no pericardial effusion. CONCLUSIONS -------- 1. The left ventricular size is normal. 2. There is borderline concentric left ventricular hypertrophy. 3. Overall left ventricular systolic function is normal with, an EF between 60 - 65 %. 4. The right ventricle is mildly enlarged. 5. Normal LA size by volume 22+/-6 ml/m2. 6. The aortic valve is trileaflet, and appears structurally normal. No aortic stenosis or regurgitati on. 7. Trace/mild (physiologic) pulmonic regurgitation. 8. There is no pericardial effusion. ASSESSMENT DIRECTOR: Hyacinth Guerrier RDCS
--- NOTE | 2020-11-19 11:26 | P.CNPUL ---
History of Present Illness Consult date: 11/19/20 Reason for consult: dyspnea, cough, hypoxemia, pneumonia Chief complaint: Ongoing shortness of breath for last 8-9 days History of present illness: This is a 50-year-old male with prior medical history significant for IgA nephropathy, hypertension hypertensive cardiovascular disease, patient came into the hospital with about 8-9 days history of increasing shortness of breath cough, up to point that he has been hypoxic oxygen saturation dropped down to 90% at room air temperature 99, patient has been diagnosed Covid 2 days ago patient has received monoclonal antibody, after that was discharged home but due to persistent symptoms came back into the hospital, labs were significant for hyponatremia with sodium 130, urine creatinine of 41/2.4 to ferritin level 5475, LDH is 1111, C-reactive protein is 20 1, AST and ALT were 112 and 112 patient is being treated with Lovenox, dexamethasone, had been started on REMdesivir today as renal functions have improved, patient has been on multivitamin as well, today she is on 5 L oxygen, afebrile with saturation of 91-93%, chest x-ray significant for cardiomegaly bilateral multifocal opacities consistent with COVID-19 pneumonia, VQ scan negative versus low probability, ejection fraction 65%, on echocardiogram, follow-up chest x-ray bilateral infiltrate unchanged Review of Systems All systems: negative Past Medical History Additional Past Medical History / Comment(s): Chronic diarrhea."Autoimmune IGA nephropathy, 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 History of Any Multi-Drug Resistant Organisms: None Reported Past Surgical History: Orthopedic Surgery Additional Past Surgical History / Comment(s): Kidney biopsies. Left knee surgery. Past Anesthesia/Blood Transfusion Reactions: No Reported Reaction, Motion Sickness Past Psychological History: No Psychological Hx Reported Smoking Status: Never smoker Past Alcohol Use History: None Reported Past Drug Use History: None Reported - Past Family History Mother Family Medical History: No Reported History Medications and Allergies Home Medications Medication Instructions Recorded Confirmed Type Olmesartan/Hydrochlorothiazide 1 tab PO HS 10/22/20 11/18/20 History [Benicar Hct 40-25 mg Tablet] lisinopriL 20 mg PO HS 10/22/20 11/18/20 History Acetaminophen Tab [Tylenol Tab] 1,000 mg PO Q6HR PRN 11/18/20 11/18/20 History Allergies Allergy/AdvReac Type Severity Reaction Status Date / Time No Known Allergies Allergy Verified 11/18/20 13:38 Physical Exam Vitals: Vital Signs Temp Pulse Pulse Resp BP BP Pulse Ox 11/19/20 09:42 98 F 69 18 109/68 91 L 11/19/20 08:06 93 L 11/19/20 08:00 17 11/19/20 05:45 96.8 F L 60 115/70 93 L 11/19/20 01:48 97.4 F L 62 107/67 94 L 11/18/20 22:36 95 11/18/20 22:28 96.6 F L 57 L 22 104/65 99 11/18/20 17:35 90 20 103/63 94 L 11/18/20 15:41 95 11/18/20 15:30 92 L 11/18/20 14:10 93 20 97/56 93 L 11/18/20 12:38 99.6 F 97 22 93/55 90 L Intake and Output 11/18/20 11/19/20 11/19/20 22:59 06:59 14:59 Output Total 650 Balance -650 Output: Urine 650 Other: Voiding Method Urinal # Voids 3 # Bowel Movements 0 Weight 110.677 kg - Constitutional General appearance: average body habitus, cooperative, disheveled - EENT Eyes: EOMI, PERRLA Ears: bilateral: normal - Neck Neck: normal ROM Carotids: bilateral: upstroke normal Thyroid: bilateral: normal size - Respiratory Respiratory: bilateral: rales (Bilateral, diffuse) - Cardiovascular Rhythm: regular Heart sounds: normal: S1, S2 - Gastrointestinal General gastrointestinal: normal bowel sounds - Integumentary Integumentary: normal turgor - Neurologic Neurologic: CNII-XII intact - Musculoskeletal Musculoskeletal: gait normal, generalized weakness, strength equal bilaterally - Psychiatric Psychiatric: A&O x's 3, appropriate affect, intact judgment & insight Results - Laboratory Findings CBC and BMP: 11/19/20 05:53 11/19/20 05:53 PT/INR, D-dimer PT 9.6 sec (9.0-12.0) 11/19/20 05:53 INR 0.9 (<1.2) 11/19/20 05:53 D-Dimer 0.59 mg/L FEU (<0.60) 11/19/20 05:53 Abnormal lab findings: Abnormal Labs 11/18/20 11/18/20 11/18/20 13:26 13:26 13:26 WBC RBC 3.99 L Hgb 12.3 L Hct 34.7 L Plt Count 127 L Lymphocytes # 0.4 L Monocytes # Eosinophils # Fibrinogen D-Dimer 0.75 H Sodium 130 L Chloride 97 L BUN 41 H Creatinine 2.42 H Glucose 117 H POC Glucose (mg/dL) Ferritin 5475.0 H AST 112 H ALT 112 H Lactate Dehydrogenase 1111 H C-Reactive Protein 21.9 H Albumin Procalcitonin Coronavirus (PCR) 11/18/20 11/18/20 11/18/20 13:26 13:37 22:36 WBC RBC Hgb Hct Plt Count Lymphocytes # Monocytes # Eosinophils # Fibrinogen D-Dimer Sodium Chloride BUN Creatinine Glucose POC Glucose (mg/dL) 161 H Ferritin AST ALT Lactate Dehydrogenase C-Reactive Protein Albumin Procalcitonin 3.06 H Coronavirus (PCR) Detected A 11/19/20 11/19/20 11/19/20 05:53 05:53 05:53 WBC 2.46 L RBC 4.07 L Hgb 12.0 L Hct 35.7 L Plt Count Lymphocytes # 0.40 L Monocytes # 0.11 L Eosinophils # 0 L Fibrinogen 660 H D-Dimer Sodium Chloride BUN 31 H Creatinine Glucose 165 H POC Glucose (mg/dL) Ferritin AST 96 H ALT 106 H Lactate Dehydrogenase 1139 H C-Reactive Protein 19.8 H Albumin 3.3 L Procalcitonin Coronavirus (PCR) 11/19/20 07:24 WBC RBC Hgb Hct Plt Count Lymphocytes # Monocytes # Eosinophils # Fibrinogen D-Dimer Sodium Chloride BUN Creatinine Glucose POC Glucose (mg/dL) 159 H Ferritin AST ALT Lactate Dehydrogenase C-Reactive Protein Albumin Procalcitonin Coronavirus (PCR) Assessment and Plan Assessment: Acute hypoxic respiratory failure Acute COVID-19 pneumonia Acute on chronic renal failure worsening likely related to intravascular volume depletion dehydration IgA nephropathy Hypertension Plan: Agree with starting REMdesivir Decadron Supplemental oxygen Continue multivitamins Continue deep breathing exercise incentive spirometry Time with Patient: Greater than 30
[2020-11-19 11:48] LABS: Glucose,Whole Blood 149 mg/dL (75-99)
--- NOTE | 2020-11-19 14:55 | CONS ---
CONSULTATION REASON FOR CONSULT: History of IgA nephropathy. HISTORY OF PRESENT ILLNESS: Patient is a 50-year-old male who was admitted to the hospital with complaints of shortness of breath, cough. Patient tested positive for COVID-19. His son and also tested positive at home. Patient has a history of IgA nephropathy. Patient has had a serum creatinine of 1 to 1.1 mg/dL. His UA has been completely benign, with no evidence of proteinuria. He has had microscopic hematuria on and off. Patient has been maintained on angiotensin receptor blockers. He was on Benicar for many years. However, recently he had been having chronic diarrhea and had a colonoscopy done by Dr. Xie and it was recommended to discontinue the Benicar, as it can be associated with chronic diarrhea. Patient's serum creatinine was 2.4 on initial admission. He is currently maintained on IV fluids and his creatinine is back down to 1.0. Patient denies any urinary symptoms. He denies use of any nonsteroidal anti-inflammatory agents. PAST MEDICAL HISTORY: Significant for history of IgA nephropathy, hypertension, history of chronic diarrhea related to Benicar. PAST SURGICAL HISTORY: Kidney biopsies, left knee surgery. SOCIAL HISTORY: Negative for smoking, drug abuse or alcohol abuse. MEDICATIONS: Medications at home include Benicar, hydrochlorothiazide and Tylenol. ALLERGIES: NONE. PHYSICAL EXAMINATION: Patient is currently comfortable, awake, not in any acute distress. Alert, oriented x3. Blood pressure 109/68, heart rate 69 per minute. He is afebrile. Examination of lower extremities shows no evidence of edema. Abdomen is soft, nontender. CHILI PEPPER GRINDER EXAM: Grossly intact. LABS: Sodium 137, potassium 4.9, chloride 106, BUN 31, creatinine 1.0, hemoglobin 12.0 g/dL. ASSESSMENT: 1. Acute kidney injury, prerenal, currently improved with IV hydration. 2. Chronic kidney disease with history of IgA nephropathy. Most recently patient's UA has been completely benign. His baseline creatinine is about 1 to 1.0, NKF stage II, maintained on CARLOS inhibitors and angiotensin receptor blockers as outpatient. 3. History of chronic diarrhea related to Benicar. Patient was supposed to switch the Benicar to an other angiotensin receptor ebony as outpatient; however, he has not done that yet. At this time his blood pressure is not significantly elevated, and in fact it is on the lower side. I will hold off on all antihypertensive medications. 4. COVID pneumonia, status post monoclonal antibody as outpatient. Patient received remdesivir here as well and he is maintained on steroids, being followed by Pulmonology. PLAN: Maintain adequate oral intake, particularly fluids. Hold off on antihypertensive medications, including CARLOS inhibitors and angiotensin receptor blockers for now. Treatment of COVID pneumonia as per Pulmonary. If the serum creatinine is further increased, we can resume gentle IV hydration. Check urinalysis. Thank you for this consultation. Will continue to follow the patient with you during his hospitalization. MMODL / IJN: [id number] /
[2020-11-19 17:17] LABS: Glucose,Whole Blood 141 mg/dL (75-99)
--- NOTE | 2020-11-19 17:56 | PN ---
PROGRESS NOTE DATE OF SERVICE: 11/19/2020 REASON FOR FOLLOWUP: COVID-19 pneumonia. INTERVAL HISTORY: The patient is afebrile. The patient is breathing more comfortably today. He is down to 5 L nasal cannula. The patient denies having any chest pain. He continues to have a cough and is bringing up some yellow sputum. No hemoptysis. No chest pain. No abdominal pain or diarrhea. PHYSICAL EXAMINATION: Blood pressure 115/71 with a pulse of 72, temperature 98.2. He is 93% on 5 L nasal cannula. General description is a middle-aged male lying in bed in no distress. RESPIRATORY SYSTEM: Unlabored breathing. Coarse breath sounds at the bases. No wheeze. HEART: S1, S2. Regular rate and rhythm. ABDOMEN: Soft. No tenderness. LABS: Hemoglobin is 12, white count 2.46, BUN of 31, creatinine 1.03. DIAGNOSTIC IMPRESSION AND PLAN: Patient with acute COVID-19 pneumonia. Patient has shown some clinical improvement. Patient to continue with remdesivir, Lovenox, dexamethasone, zinc and ascorbic acid along with respiratory support. Monitor his clinical course closely. MMODL / IJN: [id number] /
[2020-11-19 19:49] LABS: Appearance,Urine Clear (Clear); Bilirubin,Urine Negative (Negative); Blood,Urine Negative (Negative); Color,Urine Yellow; Glucose,Urine (UA) Negative (Negative); Ketones,Urine Negative (Negative); Leukocyte Esterase,Urine Negative (Negative); Mucus,Urine Rare /hpf; Nitrite,Urine Negative (Negative); Protein,Urine 1+ (Negative); RBC,Urine <1 /hpf (0-5); Specific Gravity,Urine 1.023 (1.001-1.035); WBC,Urine 1 /hpf (0-5)
--- NOTE | 2020-11-19 19:58 | PN ---
PROGRESS NOTE I am covering for Dr. Wan. DATE OF SERVICE: 11/19/2020 This 50-year-old gentleman who was admitted with acute COVID-19 infection and acute bilateral pneumonia also had acute renal failure. The patient also had acute hypoxic respiratory failure, present on admission. The patient was started on remdesivir. Infectious Disease is following the patient closely. The patient was also started on dexamethasone and usual medications for COVID-19. Past medical history reviewed. REVIEW OF SYSTEMS: CARDIOVASCULAR: No angina, palpitations. RESPIRATORY SYSTEM: As mentioned earlier. GI: As mentioned earlier. : No dysuria. NERVOUS SYSTEM: No numbness, weakness. CURRENT MEDICATIONS: Reviewed. They include Tylenol, Ventolin, vitamin C, Decadron, Lovenox, Narcan, remdesivir. Doses are reviewed. PHYSICAL EXAMINATION: Patient alert and oriented x3. Pulse 74, blood pressure 107/64, respiration 18, temperature 98.1, pulse ox 94% on 5 L. HEENT: Conjunctivae normal. NECK: No jugular venous distention. CARDIOVASCULAR: S1, S2 muffled. RESPIRATION: Breath sounds diminished at the bases. Bilateral scattered rhonchi and crackles. ABDOMEN: Soft, nontender. LEGS: No edema. No swelling. NERVOUS SYSTEM: No focal deficit. LAB STUDIES: WBC 2.4, hemoglobin 12 and fibrinogen is 660 and glucose 165. LDH is 1139. CRP is 19.8. ASSESSMENT: 1. Acute COVID-19 infection with acute bilateral interstitial pneumonia with acute hypoxic respiratory failure with possible sepsis, present on admission. 2. Leukopenia. 3. Anemia, normocytic. 4. Lymphopenia. 5. Elevated random glucose. 6. Elevated AST and ALT secondary to possibly to acute COVID-19. 7. Elevated an LDH and CRP, elevated inflammatory markers of COVID-19. 8. History of chronic diarrhea. 9. History of autoimmune IgA and nephropathy. 10.History of degenerative joint disease. RECOMMENDATIONS AND DISCUSSION: I recommend to continue current medications, continue with symptomatic treatment. Continue with remdesivir. Closely follow. Incentive spirometry. Continue with the bronchodilators. Ensure oxygenation. Closely follow with Pulmonary and Infectious Disease. Guarded prognosis because of multiple complex medical issues. Continue with Lovenox. Further recommendations to follow. The D-dimer is negative at this time. MMODL / IJN: [id number] /
[2020-11-19 22:06] LABS: Glucose,Whole Blood 168 mg/dL (75-99)
[2020-11-19] MEDS: CHOLECALCIFEROL 25 MCG (1000 IU) TABLET PO SCH (22:10)
[2020-11-19] MEDS: REMDESIVIR 100 MG in SODIUM CHLORIDE 0.9% 250 ML IVPB SCH (22:11)
[2020-11-20 07:25] LABS: Glucose,Whole Blood 141 mg/dL (75-99)
[2020-11-20] MEDS: ALBUTEROL HFA INHALER INHALATION SCH ×4 (07:35→20:09)
[2020-11-20] MEDS: INSULIN ASPART (NovoLOG) 100 UNIT/ML VIAL SQ SCH ×4 (08:36→20:36)
[2020-11-20] MEDS: ENOXAPARIN 40 MG/0.4 ML SYRINGE SQ SCH (08:37)
[2020-11-20] MEDS: ASCORBIC ACID 500 MG TAB PO SCH (08:37)
[2020-11-20] MEDS: CHOLECALCIFEROL 25 MCG (1000 IU) TABLET PO SCH (08:37)
[2020-11-20] MEDS: DEXAMETHASONE SOD PHOSPHATE 10 MG/ML 1 ML VIAL IV SCH ×2 (08:37→20:36)
[2020-11-20] MEDS: ZINC SULFATE 220 MG CAP PO SCH (08:37)
[2020-11-20 08:45] LABS: Basophils % (A) 0 %; Eosinophils % (A) 0 %; HCT 36.5 % (39.0-53.0); HGB 12.3 gm/dL (13.0-17.5); Lymphocytes # (A) 0.3 k/uL (1.0-4.8); Lymphocytes % (A) 5 %; MCH 30.4 pg (25.0-35.0); MCHC 33.7 g/dL (31.0-37.0); MCV 90.2 fL (80.0-100.0); Mean Platelet Volume 7.9; Monocytes # (A) 0.2 k/uL (0-1.0); Monocytes % (A) 3 %; Neutrophils # (A) 5.6 k/uL (1.3-7.7); Neutrophils % (A) 90 %; Platelet Count 217 k/uL (150-450); RBC 4.05 m/uL (4.30-5.90); RDW 12.4 % (11.5-15.5); WBC 6.2 k/uL (3.8-10.6)
[2020-11-20 08:50] LABS: African American GFR (CKD) >90 (>60 ml/min/1.73 sqM); Anion Gap 8 mmol/L; Blood Urea Nitrogen 28 mg/dL (9-20); Calcium 9.4 mg/dL (8.4-10.2); Carbon Dioxide 25 mmol/L (22-30); Chloride 105 mmol/L (98-107); Glucose 146 mg/dL (74-99); Non-African American GFR(CKD) >90 (>60 ml/min/1.73 sqM); Potassium 4.6 mmol/L (3.5-5.1); Sodium 138 mmol/L (137-145)
--- NOTE | 2020-11-20 10:06 | P.PN ---
Subjective Patient is seen in follow-up for acute kidney injury on chronic kidney disease. Renal function is now back to baseline. Patient has a history of 5 GN nephropathy. Hemodynamically stable. Complaining of diarrhea. No hematuria or dysuria. Currently on 5 L nasal cannula. Vital signs are stable. General: The patient appeared well nourished and normally developed. HEENT: Head exam is unremarkable. LUNGS: Breath sounds decreased. HEART: Rate and Rhythm are regular. ABDOMEN: Soft, no distention. EXTREMITITES: No edema. Objective - Vital Signs Vital signs: Vital Signs Temp 97.4 F L 11/20/20 05:30 Pulse 73 11/20/20 05:30 Resp 20 11/20/20 08:53 BP 121/72 11/20/20 05:30 Pulse Ox 88 L 11/20/20 08:53 Intake & Output 11/19/20 11/20/20 11/20/20 18:59 06:59 18:59 Intake Total 600 300 Balance 600 300 Intake: Oral 600 300 Other: Voiding Method Urinal # Voids 5 1 # Bowel Movements 1 - Labs CBC & Chem 7: 11/20/20 07:10 11/20/20 07:10 Labs: Abnormal Lab Results - Last 24 Hours (Table) 11/19/20 11/19/20 11/19/20 Range/Units 05:53 11:47 17:12 RBC (4.30-5.90) m/uL Hgb (13.0-17.5) gm/dL Hct (39.0-53.0) % Lymphocytes # (1.0-4.8) k/uL BUN (9-20) mg/dL Glucose (74-99) mg/dL POC Glucose (mg/dL) 149 H 141 H (75-99) mg/dL Ferritin 5746.0 H (22.0-322.0) ng/mL Urine Protein (Negative) Urine Mucus (None) /hpf 11/19/20 11/19/20 11/20/20 Range/Units 19:37 22:01 07:10 RBC 4.05 L (4.30-5.90) m/uL Hgb 12.3 L (13.0-17.5) gm/dL Hct 36.5 L (39.0-53.0) % Lymphocytes # 0.3 L (1.0-4.8) k/uL BUN (9-20) mg/dL Glucose (74-99) mg/dL POC Glucose (mg/dL) 168 H (75-99) mg/dL Ferritin (22.0-322.0) ng/mL Urine Protein 1+ H (Negative) Urine Mucus Rare H (None) /hpf 11/20/20 11/20/20 Range/Units 07:10 07:24 RBC (4.30-5.90) m/uL Hgb (13.0-17.5) gm/dL Hct (39.0-53.0) % Lymphocytes # (1.0-4.8) k/uL BUN 28 H (9-20) mg/dL Glucose 146 H (74-99) mg/dL POC Glucose (mg/dL) 141 H (75-99) mg/dL Ferritin (22.0-322.0) ng/mL Urine Protein (Negative) Urine Mucus (None) /hpf Microbiology - Last 24 Hours (Table) 11/18/20 13:37 Blood Culture - Preliminary Blood No Growth after 24 hours 11/18/20 13:37 Blood Culture - Preliminary Blood No Growth after 24 hours Assessment and Plan Plan: Assessment: 1. Acute kidney injury mostly prerenal improved with IV hydration. Creatinine 0.92 today. 2. Chronic kidney disease stage II with baseline creatinine near 1 secondary to IgA nephropathy. 3. COVID-19 pneumonia maintained on steroids, remdesivir, zinc. 4. Chronic diarrhea possibly related to Benicar. Currently held. 5. Hypertension with chronic kidney disease. Blood pressure the lower side. Plan: Continue to hold all anti-hypertensives. Resume normal saline at 75 mL an hour. Encourage oral intake. Check UPC. Continue to monitor renal function and urine output.
[2020-11-20] MEDS: SODIUM CHLORIDE 0.9% 1,000 ML IV SCH (10:51)
[2020-11-20 11:51] LABS: Glucose,Whole Blood 130 mg/dL (75-99)
--- NOTE | 2020-11-20 11:59 | XR ---
EXAMINATION TYPE: XR chest 1V portable DATE OF EXAM: 11/20/2020 COMPARISON: Chest x-ray 11/19/2020 HISTORY: Covid pneumonia, shortness of breath TECHNIQUE: Single frontal view of the chest is obtained. FINDINGS: Bilateral patchy airspace disease is again noted. No evident pneumothorax or pleural effus ion. Cardiac mediastinal silhouette is stable. IMPRESSION: Findings consistent with patient's history, pneumonia
[2020-11-20 12:40] LABS: Creatinine,Urine Random 182.1 mg/dL; Protein/Creatinine Ratio,Urine 0.17
[2020-11-20 16:55] LABS: Glucose,Whole Blood 177 mg/dL (75-99)
--- NOTE | 2020-11-20 16:56 | PN ---
PROGRESS NOTE DATE OF SERVICE: 11/20/2020 This 50-year-old gentleman who was admitted with acute COVID-19 infection also had acute renal failure. The pulse ox is maintained on supplemental oxygen. The chest x- ray showed acute bilateral extensive pneumonia, right more than the left. No fever. Cough is present. PHYSICAL EXAMINATION: Alert and oriented x3. Pulse 67, blood pressure 112/63, respiration 16, temperature 98.1, pulse ox 91% on 5 L. HEENT: Conjunctivae normal. Oral mucosa moist. NECK: No jugular venous distention. No carotid bruit. No lymph node enlargement. CARDIOVASCULAR: S1, S2 muffled. RESPIRATION: Breath sounds diminished at the bases. A few rhonchi. ABDOMEN: Soft. NERVOUS SYSTEM: No focal deficit. LABS: WBC 6.2, hemoglobin 12.3, glucose 141. ASSESSMENT: 1. Acute COVID-19 infection with acute bilateral interstitial pneumonia with acute hypoxic respiratory failure with possible sepsis, present on admission. 2. Leukopenia. 3. Anemia, normocytic. 4. Lymphopenia. 5. Elevated random glucose. 6. Elevated AST, ALT secondary to possibly acute COVID-19. 7. Elevated LDH and CRP; elevated inflammatory markers of COVID-19. 8. History of chronic diarrhea. 9. History of autoimmune IgA nephropathy. 10.History of degenerative joint disease. RECOMMENDATIONS AND DISCUSSION: I recommend to continue current medications, continue with symptomatic treatment. Continue with remdesivir and continue with dexamethasone. Prognosis is guarded. Further recommendations to follow. The BUN is 28, creatinine is 2.92, which is improved significantly. MMODL / IJN: [id number] /
--- NOTE | 2020-11-20 17:07 | PN ---
PROGRESS NOTE DATE OF SERVICE: 11/20/2020 REASON FOR FOLLOWUP: COVID-19 pneumonia. INTERVAL HISTORY: The patient is afebrile. The patient is currently breathing comfortably. He is down to 5 L nasal cannula. The patient denies having chest pain. He continues to have a cough with occasional sputum. No nausea, no vomiting. No abdominal pain or diarrhea. PHYSICAL EXAMINATION: Blood pressure 112/63, pulse of 67, temperature 98.1. He is 91% on 5 L nasal cannula. General description is a middle-aged male up in the bed in no distress. RESPIRATORY SYSTEM: Unlabored breathing. Coarse crackles in the bases bilaterally. No wheeze. HEART: S1, S2. Regular rate and rhythm. ABDOMEN: Soft. No tenderness. LABS: Hemoglobin is 12.3, white count 6.2, creatinine 0.92. DIAGNOSTIC IMPRESSION AND PLAN: Patient with acute COVID-19 pneumonia in this patient who has shown overall clinical improvement. He is currently on remdesivir, diagnosis, Lovenox, zinc, ascorbic acid; to continue, and monitor his clinical course closely. Continue supportive care. MMODL / IJN: [id number] /
[2020-11-20 20:18] LABS: Glucose,Whole Blood 145 mg/dL (75-99)
[2020-11-20] MEDS: REMDESIVIR 100 MG in SODIUM CHLORIDE 0.9% 250 ML IVPB SCH (20:36)
[2020-11-21] MEDS: SODIUM CHLORIDE 0.9% 1,000 ML IV SCH ×2 (01:31→12:33)
[2020-11-21 06:59] LABS: Glucose,Whole Blood 143 mg/dL (75-99)
[2020-11-21] MEDS: ALBUTEROL HFA INHALER INHALATION SCH ×4 (08:22→20:51)
[2020-11-21] MEDS: INSULIN ASPART (NovoLOG) 100 UNIT/ML VIAL SQ SCH ×4 (08:45→20:23)
[2020-11-21] MEDS: ENOXAPARIN 40 MG/0.4 ML SYRINGE SQ SCH (08:46)
[2020-11-21] MEDS: DEXAMETHASONE SOD PHOSPHATE 10 MG/ML 1 ML VIAL IV SCH ×2 (08:46→20:22)
[2020-11-21] MEDS: ASCORBIC ACID 500 MG TAB PO SCH (08:46)
[2020-11-21] MEDS: CHOLECALCIFEROL 25 MCG (1000 IU) TABLET PO SCH (08:46)
[2020-11-21] MEDS: ZINC SULFATE 220 MG CAP PO SCH (08:46)
[2020-11-21 08:56] LABS: African American GFR (CKD) >90 (>60 ml/min/1.73 sqM); Anion Gap 9 mmol/L; Blood Urea Nitrogen 32 mg/dL (9-20); Calcium 9.4 mg/dL (8.4-10.2); Carbon Dioxide 22 mmol/L (22-30); Chloride 107 mmol/L (98-107); Glucose 150 mg/dL (74-99); Non-African American GFR(CKD) >90 (>60 ml/min/1.73 sqM); Potassium 4.8 mmol/L (3.5-5.1); Sodium 138 mmol/L (137-145)
--- NOTE | 2020-11-21 10:32 | P.PN ---
Subjective Patient is seen in follow-up for acute kidney injury on chronic kidney disease. Renal function is back to baseline. Patient has a history of IgA nephropathy. Hemodynamically stable. Complaining of diarrhea. No hematuria or dysuria. Currently on 3 L nasal cannula. Vital signs are stable. General: The patient appeared well nourished and normally developed. HEENT: Head exam is unremarkable. LUNGS: Breath sounds decreased. HEART: Rate and Rhythm are regular. ABDOMEN: Soft, no distention. EXTREMITITES: No edema. Objective - Vital Signs Vital signs: Vital Signs Temp 97.6 F 11/21/20 10:13 Pulse 76 11/21/20 10:13 Resp 18 11/21/20 10:13 BP 118/72 11/21/20 10:13 Pulse Ox 87 L 11/21/20 10:13 Intake & Output 11/20/20 11/21/20 11/21/20 18:59 06:59 18:59 Intake Total 200 Balance 200 Intake: Oral 200 Other: Voiding Method Urinal Urinal # Voids 1 - Labs CBC & Chem 7: 11/20/20 07:10 11/21/20 08:35 Labs: Abnormal Lab Results - Last 24 Hours (Table) 11/20/20 11/20/20 11/20/20 Range/Units 11:49 16:53 20:17 BUN (9-20) mg/dL Glucose (74-99) mg/dL POC Glucose (mg/dL) 130 H 177 H 145 H (75-99) mg/dL 11/21/20 11/21/20 Range/Units 06:58 08:35 BUN 32 H (9-20) mg/dL Glucose 150 H (74-99) mg/dL POC Glucose (mg/dL) 143 H (75-99) mg/dL Microbiology - Last 24 Hours (Table) 11/18/20 13:37 Blood Culture - Preliminary Blood No Growth after 48 hours 11/18/20 13:37 Blood Culture - Preliminary Blood No Growth after 48 hours Assessment and Plan Plan: Assessment: 1. Acute kidney injury mostly prerenal improved with IV hydration. Creatinine 0.92 today. 2. Chronic kidney disease stage II with baseline creatinine near 1 secondary to IgA nephropathy. UPC 0.17. 3. COVID-19 pneumonia maintained on steroids, remdesivir, zinc. 4. Chronic diarrhea possibly related to Benicar. Currently held. 5. Hypertension with chronic kidney disease. Controlled. Plan: Continue to hold all anti-hypertensives. Decrease rate of normal saline to 50 mL an hour. Encourage oral intake. Continue to monitor renal function and urine output.
[2020-11-21 11:37] LABS: Glucose,Whole Blood 146 mg/dL (75-99)
[2020-11-21 16:40] LABS: Glucose,Whole Blood 136 mg/dL (75-99)
--- NOTE | 2020-11-21 19:03 | PN ---
PROGRESS NOTE DATE OF SERVICE: 11/21/2020 This 50-year-old gentleman who was admitted with acute COVID-19 infection and bilateral pneumonia is being closely monitored at this time. No chest pain. No palpitations. No fever. PHYSICAL EXAMINATION: Alert and oriented x3. Pulse 71, blood pressure 130/60, respiration 18, temperature 98.2, pulse ox 94% on 3 L. HEENT: Conjunctivae normal. Oral mucosa moist. NECK: No jugular venous distention. No lymph node enlargement. CARDIOVASCULAR: S1, S2, muffled. No S3, no S4, RESPIRATORY: Diminished breath sounds at the bases. A few scattered rhonchi. ABDOMEN: Soft. NERVOUS SYSTEM: No focal deficits. LABS: Noted. ASSESSMENT: 1. Acute COVID-19 infection with acute bilateral interstitial pneumonia with acute hypoxic respiratory failure with possible sepsis, present on admission. 2. Leukopenia. 3. Anemia, normocytic. 4. Elevated random glucose. 5. Elevated AST, ALT secondary to possibly acute COVID-19. 6. Elevated LDH and CRP inflammatory markers of COVID-19. 7. History of chronic diarrhea. 8. History of autoimmune IgA nephropathy. 9. History of DJD. RECOMMENDATIONS: Recommend to continue current management and continue symptomatic treatment. Otherwise, at this time I recommend continue the with current medications. The patient is on 4 L nasal cannula. Titrate down the oxygen possibly. Guarded prognosis. Further recommendations to follow. ALEXANDRA / JENNIFERN: [id number] /
[2020-11-21 20:00] LABS: Glucose,Whole Blood 145 mg/dL (75-99)
[2020-11-21] MEDS: REMDESIVIR 100 MG in SODIUM CHLORIDE 0.9% 250 ML IVPB SCH (20:22)
--- NOTE | 2020-11-22 02:57 | PN ---
PROGRESS NOTE DATE OF SERVICE: 11/21/2020 REASON FOR FOLLOWUP: COVID-19 pneumonia. INTERVAL HISTORY: The patient is afebrile. The patient is breathing more comfortably. The patient is cut down to 4 L nasal cannula. The patient denies having any chest pain or worsening cough. No nausea, vomiting. No abdominal pain, no diarrhea. PHYSICAL EXAMINATION: Blood pressure 132/76, pulse of 62, temperature is 97.6. He is 94% on 4 L nasal cannula. General description is a middle-aged male up in the bed in no distress. Respiratory system: Unlabored breathing, decreased breath sounds, no wheeze. Heart S1, S2. Regular rate and rhythm. Abdomen soft, no tenderness. LABS: BUN of 32, creatinine 0.92. DIAGNOSTIC IMPRESSION AND PLAN: Patient with acute COVID-19 pneumonia in this patient who seemed to have shown overall clinical improvement. Patient to continue with Remdesivir to finish his five day course of therapy. Also, to continue with dexamethasone, zinc and ascorbic acid. He has been advised to increase his ( ), incentive spirometry and continue supportive care. MMODL / IJN: [id number] /
[2020-11-22 06:46] LABS: Glucose,Whole Blood 153 mg/dL (75-99)
[2020-11-22] MEDS: INSULIN ASPART (NovoLOG) 100 UNIT/ML VIAL SQ SCH ×3 (07:14→17:22)
[2020-11-22] MEDS: ASCORBIC ACID 500 MG TAB PO SCH (07:14)
[2020-11-22] MEDS: CHOLECALCIFEROL 25 MCG (1000 IU) TABLET PO SCH (07:14)
[2020-11-22] MEDS: ZINC SULFATE 220 MG CAP PO SCH (07:14)
[2020-11-22] MEDS: DEXAMETHASONE SOD PHOSPHATE 10 MG/ML 1 ML VIAL IV SCH (07:15)
[2020-11-22] MEDS: ENOXAPARIN 40 MG/0.4 ML SYRINGE SQ SCH (07:16)
[2020-11-22] MEDS: SODIUM CHLORIDE 0.9% 1,000 ML IV SCH (07:17)
[2020-11-22] MEDS: ALBUTEROL HFA INHALER INHALATION SCH ×3 (07:49→16:42)
--- NOTE | 2020-11-22 09:34 | P.PN ---
Subjective Patient is seen in follow-up for acute kidney injury on chronic kidney disease. Renal function is back to baseline. Patient has a history of IgA nephropathy. Hemodynamically stable. Diarrhea improved. No hematuria or dysuria. Currently on 4 L nasal cannula. Vital signs are stable. General: The patient appeared well nourished and normally developed. HEENT: Head exam is unremarkable. LUNGS: Breath sounds decreased. HEART: Rate and Rhythm are regular. ABDOMEN: Soft, no distention. EXTREMITITES: No edema. Objective - Vital Signs Vital signs: Vital Signs Temp 98.5 F 11/22/20 05:40 Pulse 80 11/22/20 07:36 Resp 20 11/22/20 07:38 BP 143/73 11/22/20 05:40 Pulse Ox 88 L 11/22/20 07:38 Intake & Output 11/21/20 11/22/20 11/22/20 18:59 06:59 18:59 Intake Total 200 Balance 200 Intake: Oral 200 Other: Voiding Method Urinal # Voids 2 # Bowel Movements 0 - Labs CBC & Chem 7: 11/20/20 07:10 11/21/20 08:35 Labs: Abnormal Lab Results - Last 24 Hours (Table) 11/21/20 11/21/20 11/21/20 Range/Units 11:36 16:39 19:58 POC Glucose (mg/dL) 146 H 136 H 145 H (75-99) mg/dL 11/22/20 Range/Units 06:44 POC Glucose (mg/dL) 153 H (75-99) mg/dL Microbiology - Last 24 Hours (Table) 11/18/20 13:37 Blood Culture - Preliminary Blood No Growth after 72 hours 11/18/20 13:37 Blood Culture - Preliminary Blood No Growth after 72 hours Assessment and Plan Plan: Assessment: 1. Acute kidney injury mostly prerenal improved with IV hydration. Creatinine 0.92 yesterday. 2. Chronic kidney disease stage II with baseline creatinine near 1 secondary to IgA nephropathy. UPC 0.17. 3. COVID-19 pneumonia maintained on steroids, remdesivir, zinc. 4. Chronic diarrhea possibly related to Benicar. Currently held. 5. Hypertension with chronic kidney disease. Stable. Plan: Continue to hold all anti-hypertensives. Hep-Lock IV fluids. Encourage oral intake. Continue to monitor renal function and urine output.
--- NOTE | 2020-11-22 11:14 | P.PN ---
Subjective Progress Note Date: 11/22/20 Principal diagnosis: Acute hypoxic respiratory failure Acute COVID-19 pneumonia Acute on chronic renal failure worsening likely related to intravascular volume depletion dehydration, now renal function back to baseline IgA nephropathy Hypertension and hypertensive cardiovascular disease 11/22/2020, patient seen eval examined during the rounds labs reviewed medications reviewed care plan discussed, respiratory status stable but however continued to desaturate on room air, afebrile with temperature 90.8, hemodynamic status stable, oxygen saturation is 94% on 4 L, patient insist on going home last dose of IV REMDESIVIr a therapy is later on today, will defer discharge d ecision to expertise of primary service and patient choices and selection in case if go home then would recommend to continue Decadron for another 10 days 6 mg daily and oxygen 4 L nasal cannula and to see me in office in 4-6 weeks then patient to be evaluated for long COVID syndrome likely last chest x-ray from 11/30/2020 reviewed overall no significant changes This is a 50-year-old male with prior medical history significant for IgA nephropathy, hypertension hypertensive cardiovascular disease, patient came into the hospital with about 8-9 days history of increasing shortness of breath coug h, up to point that he has been hypoxic oxygen saturation dropped down to 90% at room air temperature 99, patient has been diagnosed Covid 2 days ago patient has received monoclonal antibody, after that was discharged home but due to persistent symptoms came back into the hospital, labs were significant for hyponatremia with sodium 130, urine creatinine of 41/2.4 to ferritin level 5475, LDH is 1111, C-reactive protein is 20 1, AST and ALT were 112 and 112 patient is being treated with Lovenox, dexamethasone, had been started on REMdesivir today as renal functions have improved, patient has been on multivitamin as well, today she is on 5 L oxygen, afebrile with saturation of 91-93%, chest x-ray significant for cardiomegaly bilateral multifocal opacities consistent with COVID-19 pneumonia, VQ scan negative versus low probability, ejection fraction 65%, on echocardiogram, follow-up chest x-ray bilateral infiltrate unchanged Objective - Vital Signs Vital signs: Vital Signs Temp 98.4 F 11/22/20 09:45 Pulse 60 11/22/20 09:45 Resp 18 11/22/20 09:45 BP 127/74 11/22/20 09:45 Pulse Ox 94 L 11/22/20 09:45 Intake & Output 11/21/20 11/22/20 11/22/20 18:59 06:59 18:59 Intake Total 200 Balance 200 Intake: Oral 200 Other: Voiding Method Urinal Urinal # Voids 2 # Bowel Movements 0 - Exam - Constitutional General appearance: average body habitus, cooperative, disheveled - EENT Eyes: EOMI, PERRLA Ears: bilateral: normal - Neck Neck: normal ROM Carotids: bilateral: upstroke normal Thyroid: bilateral: normal size - Respiratory Respiratory: bilateral: rales (Bilateral, diffuse) - Cardiovascular Rhythm: regular Heart sounds: normal: S1, S2 - Gastrointestinal General gastrointestinal: normal bowel sounds - Integumentary Integumentary: normal turgor - Neurologic Neurologic: CNII-XII intact - Musculoskeletal Musculoskeletal: gait normal, generalized weakness, strength equal bilaterally - Psychiatric Psychiatric: A&O x's 3, appropriate affect, intact judgment & insight - Labs CBC & Chem 7: 11/20/20 07:10 11/21/20 08:35 Labs: Abnormal Lab Results - Last 24 Hours (Table) 11/21/20 11/21/20 11/21/20 Range/Units 11:36 16:39 19:58 POC Glucose (mg/dL) 146 H 136 H 145 H (75-99) mg/dL 11/22/20 Range/Units 06:44 POC Glucose (mg/dL) 153 H (75-99) mg/dL Microbiology - Last 24 Hours (Table) 11/18/20 13:37 Blood Culture - Preliminary Blood No Growth after 72 hours 11/18/20 13:37 Blood Culture - Preliminary Blood No Growth after 72 hours Assessment and Plan Assessment: Acute hypoxic respiratory failure Acute COVID-19 pneumonia Acute on chronic renal failure worsening likely related to intravascular volume depletion dehydration IgA nephropathy Hypertension Plan: Continue REMdesivir Decadron Supplemental oxygen Continue multivitamins Continue deep breathing exercise incentive spirometry
[2020-11-22 11:39] LABS: Glucose,Whole Blood 125 mg/dL (75-99)
--- NOTE | 2020-11-22 13:53 | PN ---
PROGRESS NOTE DATE OF SERVICE: 11/22/2020 REASON FOR FOLLOWUP: COVID-19 pneumonia. INTERVAL HISTORY: The patient is afebrile. The patient is breathing more comfortably, still requiring about 4 L nasal cannula. The patient denies having any chest pain. Cough has decreased in intensity. No vomiting. No abdominal pain or diarrhea. PHYSICAL EXAMINATION: Blood pressure 127/74 with a pulse of 60, temperature 98.4. He is 94% on 4 L nasal cannula. General description is a middle-aged male up in the bed in no distress. RESPIRATORY SYSTEM: Unlabored breathing. Decreased intensity of breath sounds. No wheeze. HEART: S1, S2. Regular rate and rhythm. ABDOMEN: Soft. No tenderness. LABS: No new labs have been obtained today. DIAGNOSTIC IMPRESSION AND PLAN: Patient with acute COVID-19 pneumonia in this patient who has shown overall clinical improvement. He will continue a 5-day course of remdesivir, steroids pulmonary along with multivitamin and close outpatient followup. MMODL / IJN: [id number] /
[2020-11-22 14:06] VITALS: BP 132/73; PULSE 63; RESP 17; TEMP 98.1
[2020-11-22 16:44] LABS: Glucose,Whole Blood 132 mg/dL (75-99)
[2020-11-22] MEDS: REMDESIVIR 100 MG in SODIUM CHLORIDE 0.9% 250 ML IVPB SCH (16:47)
--- NOTE | 2020-11-22 20:38 | DS ---
DISCHARGE SUMMARY DATE OF SERVICE: 11/22/2020 FINAL DIAGNOSES: 1. Acute COVID-19 infection with acute bilateral interstitial pneumonia with acute hypoxic respiratory failure with possible sepsis, present on admission. 2. Leukopenia. 3. Chronic hypoxic respiratory failure. 4. Anemia, normocytic. 5. Elevated random glucose. 6. Elevated AST and ALT secondary to COVID-19. 7. Elevated LDH and CRP, inflammatory markers of COVID-19. 8. History of chronic diarrhea. 9. History of autoimmune IgA nephropathy. 10.History of degenerative joint disease. DISCHARGE DISPOSITION: The patient will be discharged in stable condition with guarded prognosis. HISTORY OF PRESENT ILLNESS: This 50-year-old gentleman with a past medical history of multiple medical problems, being followed by Dr. Canelo Wan in the outpatient setting, had acute bilateral COVID- 19 pneumonia. The patient was treated with multiple medications and the patient improved significantly. The patient was seen by Infectious Disease as well as Pulmonary and Nephrology. Renal function stabilized. On exam, vitals are stable. CARDIOVASCULAR: S1, S2 muffled. ABDOMEN: Soft. NERVOUS SYSTEM: No focal deficit. DISCHARGE ADVICE AND MEDICATIONS: 1. Diet is cardiac. 2. Activity limited until followup. 3. Follow up with Dr. Wan in 2-3 days. 4. Follow up with Dr. Landers as recommended. 5. Follow up with Dr. Colon as recommended. 6. Tylenol p.r.n. 7. Dexamethasone 6mg p.o. daily for 5 more days. 8. Zinc sulfate 220 mg p.o. daily. 9. Ventolin 2 puffs q.i.d. 10.Vitamin C 1000 mg daily. 11.Vitamin D3 25 mcg p.o. daily. Once again, the prognosis is guarded. MMODL / IJN: [id number] / MTDD
== END 2020-11-22 18:08 | disposition home or self-care (01) | DRG 871 ==
LOC: EC 12:34 → 4SSUR 14:31
PROVIDERS: ADMIT Family Medicine; ATTEND Family Medicine
PROC: 8E0ZXY6 Isolation (ICD-10-PCS; principal; 2020-11-18)
PROC: XW033E5 Introduction of Remdesivir Anti-infective into Peripheral Vein, Percutaneous Approach, New Technology Group 5 (ICD-10-PCS; 2020-11-18)
PROC: 5A09457 Assistance with Respiratory Ventilation, 24-96 Consecutive Hours, Continuous Positive Airway Pressure (ICD-10-PCS; 2020-11-18)
DX: A41.89 Other specified sepsis (principal); U07.1 COVID-19; J96.01 Acute respiratory failure with hypoxia; J12.82 Pneumonia due to coronavirus disease 2019; N17.9 Acute kidney failure, unspecified; E87.1 Hypo-osmolality and hyponatremia; N02.8 Recurrent and persistent hematuria with other morphologic changes; E66.9 Obesity, unspecified; R31.29 Other microscopic hematuria; E86.0 Dehydration; N18.2 Chronic kidney disease, stage 2 (mild); R74.01 Elevation of levels of liver transaminase levels; I12.9 Hypertensive chronic kidney disease with stage 1 through stage 4 chronic kidney disease, or unspecified chronic kidney disease; R79.89 Other specified abnormal findings of blood chemistry; R53.81 Other malaise; Z68.31 Body mass index [BMI] 31.0-31.9, adult; G62.9 Polyneuropathy, unspecified; E87.8 Other disorders of electrolyte and fluid balance, not elsewhere classified; D69.6 Thrombocytopenia, unspecified; D64.9 Anemia, unspecified; D72.810 Lymphocytopenia; K52.9 Noninfective gastroenteritis and colitis, unspecified; M19.90 Unspecified osteoarthritis, unspecified site; Z79.52 Long term (current) use of systemic steroids
CPT/HCPCS: 36415; 71045; 78580; 80048; 80053; 81001; 82570; 82728; 83615; 83735; 83880; 84145; 84156; 84484; 85025; 85379; 85384; 85610; 85730; 86140; 87040; 87635; 93005; 93306; 94640; 94660; 94760; 96361; 96374; 99291

== ENCOUNTER → 2020-12-02 | Outpatient (CLI) | payer BC ==
--- NOTE | 2020-12-02 11:59 | XR ---
EXAMINATION TYPE: XR chest 2V DATE OF EXAM: 12/02/2020 COMPARISON: 11/20/2020 HISTORY: Follow-up pneumonia TECHNIQUE: Frontal and lateral views of the chest are obtained. FINDINGS: Patchy infiltrates persist bilaterally. No evidence for pneumothorax. No pleural effusion. The cardiac silhouette size is within normal limits. The osseous structures are grossly intact. IMPRESSION: 1. Patchy infiltrates persist bilaterally.
== END | disposition home or self-care (01) ==
LOC: RADXRMAIN 11:22
PROVIDERS: ATTEND Nurse Practitioner
DX: J18.9 Pneumonia, unspecified organism (principal)
CPT/HCPCS: 71046

== ENCOUNTER → 2022-06-12 | Outpatient (CLI) | payer BC ==
[2022-06-12 15:44] LABS: Basophils # (A) 0.05 X 10*3/uL (0.00-0.10); Basophils % (A) 1.1 %; Eosinophils % (A) 2.3 %; HCT 38.4 % (39.6-50.0); HGB 13.3 g/dL (13.0-17.0); Immature Grans, Automated 0.2 %; Lymphocytes # (A) 1.43 X 10*3/uL (0.90-5.00); Lymphocytes % (A) 32.8 %; MCHC 34.6 g/dL (32.0-37.0); MCV 86.5 fL (80.0-97.0); Mean Platelet Volume 9.4 fL (9.5-12.2); Monocytes # (A) 0.32 X 10*3/uL (0.20-1.00); Monocytes % (A) 7.3 %; NRBC Per 100 WBC 0 /100 WBCS (0.0-0.0); Neutrophils # (A) 2.45 X 10*3/uL (1.80-7.70); Neutrophils % (A) 56.3 %; Platelet Count 185 X 10*3/uL (140-440); RBC 4.44 X 10*6/uL (4.40-5.60); RDW 12.1 % (11.5-14.5); WBC 4.36 X 10*3/uL (4.50-10.00)
[2022-06-12 15:53] LABS: Appearance,Urine Clear (Clear); Bilirubin,Urine Negative (Negative); Blood,Urine Negative (Negative); Color,Urine Yellow (Yellow); Ketones,Urine Negative (Negative); Nitrite,Urine Negative (Negative); Specific Gravity,Urine 1.011 (1.001-1.030); Urobilinogen,Urine 0.2 (0.2,1.0)
[2022-06-12 17:13] LABS: % Iron Saturation 29.02 (15.00-50.00); ALT 27 U/L (10-49); AST 21 U/L (14-35); African American GFR (CKD) 96.1 (60.0-200.0); Albumin 4.5 g/dL (3.8-4.9); Albumin/Globulin Ratio 2.09 (1.60-3.17); Alkaline Phosphatase 72 U/L (41-126); BUN/Creat Ratio 21.33 Ratio (12.00-20.00); Blood Urea Nitrogen 22.4 mg/dL (9.0-27.0); Carbon Dioxide 26.5 mmol/L (20.0-27.5); Chloride 104 mmol/L (96-109); Chol/HDL Ratio 5.66 Ratio; Globulin 2.2 g/dL (1.6-3.3); Glucose 102 mg/dL (70-110); Iron 78 ug/dL (65-175); LDL Cholesterol,Calculated 140.8 mg/dL (0.0-131.0); Potassium 4.7 mmol/L (3.5-5.5); Sodium 141 mmol/L (135-145); Total Iron Binding Capacity 270 ug/dL (228-460); Total Protein 6.7 g/dL (6.2-8.2); VLDL Calculation 18.86 mg/dL (5.00-40.00)
[2022-06-12 20:23] LABS: Microalbumin Creatinine Ratio <30 mg/g Creat (0-30); Urine Creatinine 48.4 mg/dL (39.0-259.0)
[2022-06-13 09:52] LABS: T4, Free (Free Thyroxine) 1.18 ng/dL (0.800-1.800)
[2022-06-13 09:53] LABS: Creatinine,Urine Random 48.6 mg/dL (39.0-259.0)
== END | disposition home or self-care (01) ==
LOC: LABWHC1 10:03
PROVIDERS: ATTEND Family Medicine
DX: Z00.00 Encounter for general adult medical examination without abnormal findings (principal); Z12.5 Encounter for screening for malignant neoplasm of prostate; E78.5 Hyperlipidemia, unspecified; N18.2 Chronic kidney disease, stage 2 (mild)
CPT/HCPCS: 36415; 80053; 80061; 81003; 82043; 82306; 82570; 82728; 83036; 83540; 83550; 84153; 84156; 84439; 84443; 85025

== ENCOUNTER → 2023-09-05 | Outpatient (CLI) | payer BC ==
[2023-09-05 16:39] LABS: Creatinine,Urine Random 68.3 mg/dL; Protein/Creatinine Ratio,Urine 0.088
[2023-09-05 18:39] LABS: Basophils # (A) 0.06 X 10*3/uL (0.00-0.10); Basophils % (A) 1.1 %; Eosinophils # (A) 0.15 X 10*3/uL (0.04-0.35); Eosinophils % (A) 2.8 %; HCT 44.7 % (39.6-50.0); HGB 15.6 g/dL (13.0-17.0); Lymphocytes # (A) 1.79 X 10*3/uL (0.90-5.00); Lymphocytes % (A) 33.5 %; MCH 30.1 pg (27.0-32.0); MCHC 34.9 g/dL (32.0-37.0); MCV 86.3 FL (80.0-97.0); Monocytes # (A) 0.35 X 10*3/uL (0.20-1.00); Monocytes % (A) 6.6 %; NRBC Per 100 WBC 0 X 10*3/uL (0.00-0.01); Neutrophils # (A) 2.98 X 10*3/uL (1.80-7.70); Neutrophils % (A) 55.8 %; Platelet Count 232 X 10*3/uL (140-440); RBC 5.18 X 10*6/uL (4.40-5.60); RDW 12.1 % (11.5-14.5); WBC 5.34 X 10*3/uL (4.50-10.00)
[2023-09-05 19:09] LABS: Appearance,Urine Clear (Clear); Bilirubin,Urine Negative (Negative); Blood,Urine Negative (Negative); Color,Urine Yellow (Yellow); Ketones,Urine Negative (Negative); Nitrite,Urine Negative (Negative); Specific Gravity,Urine 1.012 (1.001-1.030); Urobilinogen,Urine 0.2 E.U./DL
[2023-09-05 19:40] LABS: BUN/Creat Ratio 17.42 Ratio (12.00-20.00); Blood Urea Nitrogen 20.9 mg/dL (9.0-27.0); Calcium 10.2 mg/dL (8.7-10.3); Carbon Dioxide 25.8 mmol/L (21.6-31.8); Chloride 99 mmol/L (96-109); Glucose 102 mg/dL (70-110); Iron 49 UG/DL (65-175); Potassium 4.6 mmol/L (3.5-5.5); Sodium 139 mmol/L (135-145); Total Iron Binding Capacity 297 UG/DL (228-460)
== END | disposition home or self-care (01) ==
LOC: LABWHC1 15:56
PROVIDERS: ATTEND Internal Medicine Nephrology
DX: N18.2 Chronic kidney disease, stage 2 (mild) (principal)
CPT/HCPCS: 36415; 80048; 81003; 82040; 82306; 82570; 82728; 83540; 83550; 84156; 85025